=== PATIENT | female | born 1990 | race Caucasian/White ===

== ENCOUNTER 2017-11-12 03:37 | Emergency (ER) | payer OTHER, MEDICAID, SELFPAY ==
[2017-11-12 03:40] VITALS: BP 124/74; PULSE 79; RESP 16; TEMP 36.6
[2017-11-12 04:13] LABS: Bacteria Urine Many (>30); Culture Indicated Urine Specimen Cultured; RBC Urine 1-5/HPF (0-5/HPF); Squamous Epithelial Cell Urine 1-5 /HPF; WBC Urine 10-30/HPF (0-5/HPF)
[2017-11-12] MEDS: cephALEXin 250 MG PREPACK 1 BOTTLE MISC (04:16)
--- NOTE | 2017-11-12 04:20 | ED_ITS ---
HPI - Female Genitourinary General Chief complaint: Urogenital-Female Stated complaint: URINE FREQUENCY, BACK PAIN NAUSEA Time Seen by Provider: 11/12/17 03:40 Source: patient and family Mode of arrival: ambulatory Limitations: no limitations History of Present Illness HPI Narrative: Patient presents to the emergency department this evening with a chief complaint of dysuria, frequency and urgency for the past few days. She now has some low back pain and nausea but denies any fever or chills. She is able to eat and drink without difficulty. She denies . MD Complaint: dysuria and UTI Onset (ago): day(s) Location: suprapubic Female Urogenital Radiation: L Flank and R Flank Severity: mild Quality: Aching Duration: constant Relieving factors: none Exacerbating factors: none Urinary symptoms: Difficulty Urinating, Dysuria, Flank Pain, Foul Smelling Urine , Frequency and Urgency Patient : No Associated symptoms: abdominal pain and nausea/vomiting Related Data Previous Rx's Medication Instructions Recorded cephalexin [Keflex] 500 mg PO QID 10 Days #40 cap 11/12/17 Review of Systems Review of Systems All systems reviewed & are unremarkable except as noted in HPI and below Constitutional Denies chills, Denies fever(s), Denies lethargy and Denies weakness Eyes Denies change in vision, Denies eye discharge, Denies irritation and Denies loss of vision ENT Ears, Nose, Mouth, and Throat: Denies change in voice, Denies neck pain and Denies sore throat Cardiovascular Denies chest pain, Denies irregular heart rhythm, Denies lightheadedness, Denies palpitations, Denies dyspnea, Denies dyspnea on exertion and Denies orthopnea Respiratory Denies cough, Denies dyspnea, Denies dyspnea on exertion and Denies wheezing Gastrointestinal Gastrointestinal: Denies abdominal pain, Denies change in bowel habits, Denies diarrhea, Denies nausea and Denies vomiting Genitourinary Reports system reviewed and no additional complaints, except as docu, Reports flank pain, Reports urinary incontinence, Reports urinary hesitancy and Reports urinary urgency Musculoskeletal Reports back pain and Denies neck pain Integumentary/Breasts Denies pruritus, Denies erythema, Denies rash and Denies wounds Neurologic Denies confusion, Denies loss of vision and Denies weakness Psychiatric Denies anxiety, Denies confusion, Denies depression, Denies homicidal ideation and Denies suicidal ideation Endocrine Denies palpitations Hematologic/Lymphatic Denies easy bruising Allergic/Immunologic Denies wheezing Exam Initial Vital Signs Initial Vital Signs: Vital Signs Temperature 97.8 F 11/12/17 03:40 Pulse Rate 79 11/12/17 03:40 Respiratory Rate 16 11/12/17 03:40 Blood Pressure 124/74 H 11/12/17 03:40 Const General: cooperative and well developed Nutritional Appearance: well nourished Orientation: alert, awake, oriented x3 and not confused HENMT Head: normocephalic and atraumatic Ears: external ears normal and TM's normal bilaterally Nose: external nose normal and No nasal discharge Face and sinus: sinuses nontender, face symmetric, no sinus tenderness and No dry mucous membranes Mouth: oral mucosae normal and moist mucous membranes Teeth and gingiva: dentition normal Throat: tonsils normal and uvula midline Eyes General: appearance normal, both eyes and all related structures Eyelids: eyelids normal Conjunctivae: conjunctivae normal Sclera: sclerae normal Pupils: PERRL EOM: EOM intact bilaterally Resp Effort & Inspection: normal respiratory effort, able to speak in complete sentences, no respiratory distress and no use of accessory muscles Auscultation: clear to auscultation bilaterally, no rales, no rhonchi and no wheezes Cardio Rate: regular rate Rhythm: regular rhythm Heart Sounds: no click, no gallops, no murmurs and no rubs Pulses: normal peripheral pulses GI Palpation: tender (suprapubic tenderness) Back/Spine/Pelvis Other: minimal CVA tenderness Course Orders Ordered: ED Orders 11/12/17 03:40 Urine Culture Stat Urine Microscopic Stat Discontinued Medications Cefazolin Sodium (Keflex) 1 bottle MISC SEEINSTR ONE Stop: 11/12/17 03:58 Cephalexin HCl (Keflex) 1 bottle MISC SEEINSTR ONE Stop: 11/12/17 03:56 Ondansetron HCl (Zofran Odt Prepack) 1 bottle MISC SEEINSTR ONE Stop: 11/12/17 03:56 Vital Signs - 8 hr 11/12/17 03:40 Temperature 97.8 F Pulse Rate 79 Respiratory Rate 16 Blood Pressure 124/74 H MDM - Female Genitourinary Lab Data Lab Results 11/12/17 Range/Units 03:40 Urine RBC 1-5/hpf (0-5/HPF) Urine WBC 10-30/hpf H (0-5/HPF) Ur Squamous Epith Cells 1-5 /hpf Urine Bacteria Many (>30) H (None) Ur Culture Indicated? Specimen cultured Micro UA Comment Not Reportable Discharge Plan Departure Patient Disposition: Home, Self-Care Clinical Impression: UTI (urinary tract infection) Discharge Date/Time: 11/12/17 04:10 Instructions: DI for Urinary Tract Infection (UTI) Activity Restrictions/Additional Instructions: *You have been diagnosed with [ urinary tract infection ] *What to do: *Take medications as directed *Follow up with your primary care provider in 2-3 days *Return to ER if you should have any new, worsening or concerning symptoms Prescriptions: New cephalexin [Keflex] 500 mg capsule 500 mg PO QID 10 Days Qty: 40 RF: 0 Referrals: Bessie Tay PA-C [Primary Care Provider] -
== END 2017-11-12 04:10 | disposition home or self-care (01) ==
PROVIDERS: Emergency Provider Emergency Medicine; Family Provider Internal Medicine; PCP Internal Medicine
DX: N39.0 Urinary tract infection, site not specified (principal)
CPT/HCPCS: 81015; 81025; 87077; 87086; 99282; 99283

== ENCOUNTER 2022-10-10 10:54 | Emergency (ER) | payer OTHER, SELFPAY ==
[2022-10-10 10:57] VITALS: BP 114/74; PULSE 66; RESP 15; TEMP 36.1; O2SAT 96; BMI 28.1
--- NOTE | 2022-10-10 11:30 | ED_ITS ---
HPI - Extremity Problem <BELEM Lopez - Last Filed: 10/10/22 12:48> General Chief complaint: Extremity Problem,Nontraumatic Stated complaint: rt hand ring middle finger tingeling heating senst Time Seen by Provider: 10/10/22 11:17 Source: patient Mode of arrival: Ambulatory History of Present Illness HPI Narrative: This is a 32-year-old female presents to the emergency department complaining of right wrist and middle finger numbness which has been progressive since 2019. 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 She is right-hand dominant. She Related Data Previous Rx's Medication Instructions Recorded diclofenac sodium 1 % topical gel 2 g topical QID PRN pain #100 grams 10/10/22 (Voltaren Arthritis Pain) ibuprofen 600 mg tablet 600 mg PO Q8H PRN fever or pain 10/10/22 #30 tabs Allergies Allergy/AdvReac Type Severity Reaction Status Date / Time Penicillins Allergy Verified 10/10/22 10:57 Review of Systems <BELEM Lopez - Last Filed: 10/10/22 12:48> Review of Systems ROS Unobtainable: All systems reviewed & are unremarkable except as noted in HPI and below Patient History <BELEM Lopez - Last Filed: 10/10/22 12:48> Social History Smoking Status: Unknown if ever smoked Smoking Status: Unknown if ever smoked alcohol intake frequency: holidays/special occasions only Substance Use Type: does not use Exam <BELEM Lopez - Last Filed: 10/10/22 12:48> Narrative Exam Narrative: Reviewed vitals signs and nursing notes. MSK: moves all extremities, no weakness, normal tone, ambulatory without deficit, negative Tinel sign to right wrist, complains of pain on the medial aspect of her right wrist with phalen maneuver and denies numbness or tingling to her 1st 3 digits. She complains of pain with flexion and extension. No range of motion or sensation deficit. full range of motion, when wiggling the fingers the medial right wrist is uncomfortable Skin: brisk capillary refill, without rash or wound Neuro: clear speech and normal cognition, A&O x3, GCS 15, no focal motor or sensation deficits Initial Vital Signs Initial Vital Signs: Vital Signs Temperature 97.0 F L 10/10/22 10:57 Pulse Rate 66 10/10/22 10:57 Respiratory Rate 15 10/10/22 10:57 Blood Pressure 114/74 10/10/22 10:57 Pulse Oximetry 96 10/10/22 10:57 Oxygen Delivery Method Room Air 10/10/22 10:57 <Alen Mcdermott DO - Last Filed: 10/11/22 08:48> Initial Vital Signs Initial Vital Signs: Vital Signs Temperature 97.0 F L 10/10/22 10:57 Pulse Rate 66 10/10/22 10:57 Respiratory Rate 15 10/10/22 10:57 Blood Pressure 114/74 10/10/22 10:57 Pulse Oximetry 96 10/10/22 10:57 Oxygen Delivery Method Room Air 10/10/22 10:57 Procedures <BELEM Lopez - Last Filed: 10/10/22 12:48> Orthopedic Splinting/Casting Injury #1: Side: right Upper Extremity Injury Location: wrist Upper Extremity Immobilizer: wrist splint Post splinting neuro exam: intact Post splinting vascular exam: intact Placed by: Nursing Course <BELEM Lopez - Last Filed: 10/10/22 12:48> Vital Signs Vital signs: Vital Signs - 8 hr 10/10/22 10:57 Temperature 97.0 F L Pulse Rate 66 Respiratory Rate 15 Blood Pressure 114/74 Pulse Oximetry 96 Oxygen Delivery Method Room Air <Alen Mcdermott DO - Last Filed: 10/11/22 08:48> Vital Signs Vital signs: Vital Signs - 8 hr 10/10/22 10:57 Temperature 97.0 F L Pulse Rate 66 Respiratory Rate 15 Blood Pressure 114/74 Pulse Oximetry 96 Oxygen Delivery Method Room Air MDM - Extremity (Nontraumatic) <BELEM Lopez - Last Filed: 10/10/22 12:48> MDM Narrative Medical decision making narrative: Chief Complaint: right wrist pain Primary historian: patient Multiple etiologies for patient's complaint considered including, but not limited to: Carpal tunnel syndrome, tendinitis due to repetitive motion, arthralgia, deQuervain tendinopathy, wrist sprain, ganglion cyst, acute fracture I have independently reviewed the patient's vital signs and nursing notes as well as prior records if available. My interpretation of imaging: Patient is atraumatic, no imaging indicated Sensory and motor function testing of the radial, median, and ulnar nerves are grossly intact. Sensation intact and equal between the dorsum of the thumb and index web space, tip of the index finger, and tip of the little finger. Patient able to make a ?thumbs up ?sign dorsiflex the wrist, make an ?OK? sign with thumb and index finger, dinora-cross the index and third finger, and spread all 5 fingers apart. Course of care: This is most likely wrist sprain versus tendinitis due to overuse. 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 She is interested in following up with Orthopedics for further evaluation, does not appear to be carpal tunnel syndrome, nontender over bony structures. She is neurovascularly intact. She was splinted in a Velcro wrist splint encouraged to ice, elevate use ibuprofen and topical Voltaren gel as needed for her symptoms and to follow up with Orthopedics Social considerations that may affect disposition: none Questions are addressed and there is agreement with the plan and for follow-up. I consulted with the ED attending physician Dr. Mcdermott as needed for higher level of care considerations and they were available for discussion and recommendations regarding plan of care and diagnostic testing. Patient is appropriate for outpatient management. Discharge Plan Departure Patient Disposition: Home Clinical Impression: Right wrist tendinitis Instructions: DI for Tendinitis, How to Apply an Elastic Wrap on Wrist Activity Restrictions/Additional Instructions: *You have been diagnosed with tendinitis of your right wrist. This is likely from your work and overuse, please wear wrist splint most of the time and schedu le follow-up with prolonged orthopedics for evaluation to see if this is tendinitis versus carpal tunnel syndrome. You can ice, take ibuprofen, use Voltaren gel up to 4 times a day and this should help with the inflammation. Try to elevate and avoid overuse. *What to do: *Please continue to take your regular medications as directed. [x] New medication prescriptions sent to your pharmacy: [[facility] [place] ] [ ] New medication written as a paper prescription [ ] No new medications given *Please call and schedule follow up with your primary care provider in 2-3 days, at least for an update. Let them know you were seen in the Emergency Department for the above problem. We will electronically transmit a record of today's note if your PCP or specialist is in our system. *If you do not have a primary care provider please contact [phone] to establish care with one of the [facility] primary care providers. *Return to the Emergency Department for worsening symptoms, inability to keep liquids down, fever greater than 101F, chills, or other concerning symptom. Prescriptions: New diclofenac sodium [Voltaren Arthritis Pain] 1 % gel 2 g topical QID PRN (Reason: pain) Qty: 100 1RF Rx Instructions: apply to single elbow, wrist or hand; for hand includes palm/fingers/back of hand ibuprofen 600 mg tablet 600 mg PO Q8H PRN (Reason: fever or pain) Qty: 30 0RF Referrals: [facility] [Provider Group] Miscellaneous,Doctor, [Primary Care Provider] - Stand Alone Forms: Patient Portal/API, Work Release Note <Alen Mcdermott DO - Last Filed: 10/11/22 08:48> Cosign ED Attending Jeremiasature Attestation: I was immediately available in the department for consultation. Documentation has been reviewed. I agree with assessment and plan.
== END 2022-10-10 11:32 | disposition home or self-care (01) ==
PROVIDERS: Emergency Provider Nurse Practitioner Critical Care Medicine; Family Provider Internal Medicine
DX: M77.8 Other enthesopathies, not elsewhere classified (principal)
CPT/HCPCS: 99281

== ENCOUNTER 2022-11-08 09:16 | Emergency (ER) | payer OTHER, SELFPAY ==
--- NOTE | 2022-11-08 09:17 | ED_ITS ---
HPI - General Adult General Chief complaint: Upper Respiratory Symptoms Stated complaint: massive hard lump on RT throat getting bigger Time Seen by Provider: 11/08/22 09:17 History of Present Illness HPI narrative: 32-year-old female nonsmoker presents with a chief complaint of swelling on the right side of her throat over the past day or so. She states that she had been in her normal state of health and then this morning noticed swelling in the right anterior neck. She denies any trouble swallowing or breathing. She denies much in the way of pain. She has had no fever or chills. She denies runny nose, sore throat or cough. She denies chest pain or shortness of breath. Related Data Previous Rx's Medication Instructions Recorded diclofenac sodium 1 % topical gel 2 g topical QID PRN pain #100 grams 10/10/22 (Voltaren Arthritis Pain) ibuprofen 600 mg tablet 600 mg PO Q8H PRN fever or pain 10/10/22 #30 tabs Allergies Allergy/AdvReac Type Severity Reaction Status Date / Time Penicillins Allergy Verified 10/10/22 10:57 Review of Systems Review of Systems Narrative: GENERAL: Denies chills, fatigue, malaise, fever, sweats. HEENT: See HPI RESPIRATORY: Denies dyspnea, cough, wheezing, hemoptysis, sputum. CARDIOVASCULAR: Denies chest pain, palpitations, orthopnea, edema, GASTROINTESTINAL: Denies nausea, vomiting, abdominal pain, diarrhea, constipation, melena. : Denies dysuria, frequency, incontinence, hematuria, urinary retention. MUSCULOSKELETAL: denies weakness, joint pain, or bony pain SKIN: Denies rash, skin lesions, or other NEUROLOGIC: Denies weakness, headache, numbness, change in speech, confusion, seizures, incoordination. PSYCHIATRIC: No concerning psychosocial issues. 12 point review of systems is negative except for those stated above Patient History Social History Smoking Status: Unknown if ever smoked Smoking Status: Unknown if ever smoked alcohol intake frequency: holidays/special occasions only Substance Use Type: does not use Exam Narrative Exam Narrative: GEN: AOx3 and in mild distress EYES: Pupils are equal, round, and reactive to light and accommodation. Extraoccular muscles are intact bilaterally. There is no subconjunctival hemorrhage or exudate. ENT: swelling R lateral neck, under mandible. Non-tender, no erythema or fluctuance. No respiratory distress, no difficulty swallowing, airway patent, controlling secretions without difficulty CHEST: Lungs are clear to auscultation bilaterally and free of wheezes, rales, or rhonchi. Heart rate is regular rhythm, there are no murmurs, clicks, rubs, or gallops. There is no chest wall tenderness. ABD: Abdomen is soft and nontender. There is no guarding or rebound. Bowel sounds are normal in all 4 quadrants. There is no mass or organomegaly. EXT: Full painless ROM of all extremities with no loss of sensation or strength. SKIN: Warm, pink, and dry. No erythema or rash Initial Vital Signs Initial Vital Signs: Vital Signs Temperature 98.4 F 11/08/22 09:23 Pulse Rate 93 H 11/08/22 09:23 Respiratory Rate 16 11/08/22 09:23 Blood Pressure 118/62 11/08/22 09:23 Pulse Oximetry 100 11/08/22 09:23 Oxygen Delivery Method Room Air 11/08/22 09:23 Medical Decision Making Lab Data Labs: Lab Results 11/08/22 Range/Units 09:27 Group A Strep (PCR) Negative (Negative) MDM Narrative Medical decision making narrative: [32] year old patient presents with swelling of right lateral neck Multiple etiologies for patient's symptoms considered including, but not limited to: [Sialadenitis versus parotitis versus anterior cervical adenopathy versus strep versus other] Prior Charts reviewed in our EMR Primary Historian: patient Labs reviewed and interpreted by myself: Rapid strep demonstrates Imaging reviewed: Soft tissue of neck demonstrates Patient with relatively painless right-sided neck swelling, no difficulty s wallowing or breathing. No fever, warmth or redness, low suspicion for infection. Most consistent with sialadenitis. Imaging is reassuring and strep is negative. Patient encouraged to use sialagogues, contact [facility] for follow-up and return precautions discussed including increasing size, difficulty swallowing, breathing, controlling secretions, fever or other bothersome symptoms Findings and discharge diagnosis discussed with patient/family followed by verbalization of understanding Return precautions discussed with patient/family whom verbalize understanding of diagnosis and plan Discharge Plan Departure Patient Disposition: Home Clinical Impression: Sialadenitis Instructions: Parotitis Activity Restrictions/Additional Instructions: *You have been diagnosed with [neck swelling most consistent with swollen salivary gland. Your rapid strep was negative, x-ray is unremarkable and there is no sign of infection.] *What to do: *Please continue to take your regular medications as directed. [ ] New medication prescriptions sent to your pharmacy: [ ] [ ] New medication written as a paper prescription [ ] No new medications given *Please follow up with your primary care provider in 2-3 days, call for an appointment. Let them know you were seen in the Emergency Department and that we ask that you be seen in follow up. We will electronically transmit a record of today's note if your PCP is in our system *As we discussed sucking on hard candies such as jolly ranchers can help clear what is likely an obstructed salivary duct. * as we discussed I have given you the contact information for Dr. Urbina with [facility]. Please call the office later today, let them know you were seen in the emergency department and we would like you seen in follow-up. I will electronically transmitted a copy of today's note *If you do not have a primary care provider please contact the [facility] Resource line at [phone]. They will ask some questions about your medical history and help get you set up with a doctor in the community. *Return to Emergency Department if you should have any new, worsening or concerning symptoms, such as [fever greater than 101 F, shaking chills, worsening pain, persistent vomiting or other bothersome symptoms] Prescriptions: No Action diclofenac sodium [Voltaren Arthritis Pain] 1 % gel 2 g topical QID PRN (Reason: pain) Qty: 100 1RF Rx Instructions: apply to single elbow, wrist or hand; for hand includes palm/fingers/back of hand ibuprofen 600 mg tablet 600 mg PO Q8H PRN (Reason: fever or pain) Qty: 30 0RF Referrals: Manny Urbina MD [Physician] - Miscellaneous,MD Johann [Primary Care Provider] - Stand Alone Forms: Patient Portal/API
[2022-11-08 09:23] VITALS: BP 118/62; PULSE 93; RESP 16; TEMP 36.9; O2SAT 100; BMI 28.1
--- NOTE | 2022-11-08 09:40 | DI.RAD.S_ITS ---
PROCEDURE: XR SOFT TISSUE NECK INDICATIONS: swelling throat R>L TECHNIQUE: 2 views of the neck were acquired. COMPARISON: None. FINDINGS: Airway: The airway appears patent. Soft tissues: Prevertebral soft tissues are normal in thickness. The epiglottis and aryepiglottic folds appear normal. No soft tissue gas. Bones: No suspicious bony lesions. Mild degenerative spurring in lower cervical spine. Visualized cervical spine is normally aligned. IMPRESSION: Normal soft tissue neck. If clinical symptoms persist, consider neck CT with contrast for further evaluation. Dictated by: Pennie Nieves M.D. on 11/08/2022 at 10:25 Approved by: Pennie Nieves M.D. on 11/08/2022 at 10:26
[2022-11-08 09:43] LABS: Strep Grp A by PCR Rapid Negative (Negative)
== END 2022-11-08 10:35 | disposition home or self-care (01) ==
PROVIDERS: Emergency Provider Emergency Medicine; Family Provider Internal Medicine
DX: K11.20 Sialoadenitis, unspecified (principal)
CPT/HCPCS: 70360; 87070; 87651; 99283

== ENCOUNTER 2023-02-18 06:31 | Emergency (ER) | payer OTHER, SELFPAY ==
[2023-02-18 06:53] VITALS: BP 115/65; PULSE 86; RESP 18; TEMP 36.2; O2SAT 97; BMI 27.3
--- NOTE | 2023-02-18 07:24 | ED_ITS ---
HPI - Extremity Injury (Lower) General Chief Complaint: Extremity Injury, Lower Stated Complaint: left leg pain Time Seen by Provider: 02/18/23 07:16 Source: patient Mode of arrival: Ambulatory History of Present Illness HPI Narrative: Patient here for lower left side back pain/injury. Patient was at the gym working out yesterday was using cable pulls attached to her left ankle. She was pulling the weight towards the backside. She felt and heard a pop in the left lower back. Pain radiates posteriorly to the left knee. No saddle paresthesia numbness tingling or weakness to the legs or feet. No bowel or bladder incontinence. No prior history of back problems or injuries/therapy or MRI. Patient is able to stand and walk. Increased pain with getting out of the seat. Has not taken anything for pain. Denies does not want a test. Boot and sock removed for exam. Lower back exposed Related Data Previous Rx's Medication Instructions Recorded diclofenac sodium 1 % topical gel 2 g topical QID PRN pain #100 grams 10/10/22 (Voltaren Arthritis Pain) ibuprofen 600 mg tablet 600 mg PO Q8H PRN fever or pain 10/10/22 #30 tabs baclofen 20 mg tablet 20 mg PO TID PRN pain (scale score 02/18/23 4-6) #21 tabs ibuprofen 800 mg tablet 800 mg PO Q8H PRN pain #20 tabs 02/18/23 Allergies Allergy/AdvReac Type Severity Reaction Status Date / Time Penicillins Allergy Verified 10/10/22 10:57 Review of Systems Review of Systems Narrative: GENERAL: negative chills, fatigue, malaise, fever, sweats. HEENT: negative sinus pain, ear pain, sore throat RESPIRATORY: negative dyspnea, cough CARDIOVASCULAR: negative chest pain, palpitations GASTROINTESTINAL: negative nausea, vomiting, abdominal pain : negative dysuria, frequency, hematuria MUSCULOSKELETAL: Positive back/muscle or bony pain SKIN: negative rash, skin lesions NEUROLOGIC: negative weakness, numbness ROS Unobtainable: All systems reviewed & are unremarkable except as noted in HPI and below Patient History Social History Smoking Status: Unknown if ever smoked Smoking Status: Unknown if ever smoked alcohol intake frequency: holidays/special occasions only Substance Use Type: does not use Exam Narrative Exam Narrative: GENERAL: in no distress, not toxic not dyspneic HEAD: Normocephalic. EYES: Pupils equal round ENT: Mucous membranes moist. NECK: Trachea midline. EXTREMITIES: No gross deformities. BACK: No flank tenderness. There is no midline tenderness or step-off of the cervical thoracic or lumbar spine. There is tenderness and spasm to the left supragluteal left paralumbar muscles. Increased pain with side bending to the left. Able to side bend to the right. Limited flexion and extension at the waist forward and back due to pain. Increased pain with straight leg raise left side, in seated position., pain at 90?. NEURO: AOx4. Able to stand and walk, nonantalgic, not ataxic. No foot drop. Strong bilateral ankle flexion-extension as well as hip and knee flexion- extension. Strong bilateral patellar reflexes. Light touch intact to left foot and toes. Able to wiggle toes. Foot is warm soft and pain strong pedal pulse brisk cap refills SKIN: Warm and dry PSYCH: Not anxious, is cooperative Initial Vital Signs Initial Vital Signs: Vital Signs Temperature 97.2 F L 02/18/23 06:53 Pulse Rate 86 02/18/23 06:53 Respiratory Rate 18 02/18/23 06:53 Blood Pressure 115/65 02/18/23 06:53 Pulse Oximetry 97 02/18/23 06:53 Oxygen Delivery Method Room Air 02/18/23 06:53 Course Orders Ordered: ED Orders 02/18/23 07:23 XR lumbar spine 2-3V Stat Vital Signs Vital signs: Vital Signs - 8 hr 02/18/23 06:53 02/18/23 08:29 Temperature 97.2 F L Pulse Rate 86 61 Respiratory Rate 18 16 Blood Pressure 115/65 102/62 Pulse Oximetry 97 99 Oxygen Delivery Method Room Air Room Air MDM - Extremity Injury (Lower) Imaging Data X-ray lumbar spine: Radiologist's Impression: [address] [address] XRay Report Signed Patient: Maryam Fritz MR#: [id number] : 1990 Acct:[id number] Age/Sex: 32 / F Date of Service: 02/18/23 Loc: ED Accession Number: [id number] Procedure: XR lumbar spine 2-3V Ordering Provider: Dat Holt MD PROCEDURE: XR LUMBAR SPINE 2-3V INDICATIONS: Left-sided pain/injury TECHNIQUE: 3 views of the lumbar spine were acquired. COMPARISON: None. FINDINGS: Bones: 5 [id number] vertebrae are present. There is normal bony alignment. No vertebral body compression fractures. No suspicious bony lesions. Mild disc height loss at all levels. Soft tissues: Overlying bowel gas pattern is normal. No suspicious soft tissue calcifications. IMPRESSION: No acute, displaced fracture or traumatic subluxation. Dictated by: Luis E Becerra M.D. on 02/18/2023 at 8:12 Approved by: Luis E Becerra M.D. on 02/18/2023 at 8:13 [facility] Narrative Medical decision making narrative: Patient here for lower left side back pain/injury. Patient was at the gym working out yesterday was using cable pulls attached to her left ankle. She was pulling the weight towards the backside. She felt and heard a pop in the left lower back. Pain radiates posteriorly to the left knee. No saddle paresthesia numbness tingling or weakness to the legs or feet. No bowel or bladder incontinence. No prior history of back problems or injuries/therapy or MRI. Patient is able to stand and walk. Increased pain with getting out of the seat. Has not taken anything for pain. Denies does not want a test. Boot and sock removed for exam. Lower back exposed After history and exam x-ray lumbar spine [facility] CC: Left lower back pain Complicating co-morbidities: None Data collected from: Patient Medical records reviewed: No previous visit for this complaint Differential considered: Includes but not limited to lumbar strain sciatica bulging disc herniated disc lumbar radiculopathy Exam documented above, pertinent findings include: Limited range of motion at the waist/lower back Imaging studies independently reviewed: X-ray lumbar spine no acute finding Treatments: Patient drove here Re-evaluations: Reviewed results with patient. X-ray imaging is reassuring. Work note provided. Informed her it will take at least a week to improve. Would recommend not working out in the gym at this time but to continue movement and stretching of the lower back. Return precautions reviewed with her. Nontoxic at discharge. She desires discharge home. She does not want to wait for final results of the lumbar x-ray Discussion: Appropriate for discharge home. Exam and imaging are reassuring. Work note provided. Return precautions reviewed with patient. Patient states has a family doctor to follow up with. Appropriate for prescription for ibuprofen and baclofen. Diagnosis: Lumbar strain Discharge Plan Departure Patient Disposition: Home Clinical Impression: Lumbar strain Qualifiers: Encounter type: initial encounter Qualified Code(s): S39.012A - Strain of muscle, fascia and tendon of lower back, initial encounter Instructions: DI for Back Pain With Sciatica, DI for Back Strain or Sprain Activity Restrictions/Additional Instructions: See your family doctor in a week for re-evaluation. Please do continue stretching your lower back and sciatica exercises. However no heavy lifting bending twisting at the waist as this may exacerbate your lower back injury. You may need to follow up family doctor for MRI of the lower back. Prescription medication has been sent to your pharmacy to [facility] today. Work note has been provided for you as well. Prescriptions: New ibuprofen 800 mg tablet 800 mg PO Q8H PRN (Reason: pain) Qty: 20 0RF baclofen 20 mg tablet 20 mg PO TID PRN (Reason: pain (scale score 4-6)) Qty: 21 0RF No Action diclofenac sodium [Voltaren Arthritis Pain] 1 % gel 2 g topical QID PRN (Reason: pain) Qty: 100 1RF Rx Instructions: apply to single elbow, wrist or hand; for hand includes palm/fingers/back of hand ibuprofen 600 mg tablet 600 mg PO Q8H PRN (Reason: fever or pain) Qty: 30 0RF Referrals: Miscellaneous,Doctor, MD [Primary Care Provider] - Stand Alone Forms: Patient Portal/API, Work Release Note
[2023-02-18 08:29] VITALS: BP 102/62; PULSE 61; RESP 16; O2SAT 99
== END 2023-02-18 08:29 | disposition home or self-care (01) ==
PROVIDERS: Emergency Provider Emergency Medicine; Family Provider Internal Medicine
DX: S39.012A Strain of muscle, fascia and tendon of lower back, initial encounter (principal); X58.XXXA Exposure to other specified factors, initial encounter
CPT/HCPCS: 72100; 99283

== ENCOUNTER 2024-01-22 10:08 | Emergency (ER) | payer OTHER, SELFPAY ==
[2024-01-22 10:15] VITALS: BP 95/53; PULSE 60; RESP 16; TEMP 36.6; O2SAT 99; BMI 22.2
--- NOTE | 2024-01-22 11:01 | ED_ITS ---
HPI - Back Pain/Injury <Yesi Washington PA-C - Last Filed: 01/22/24 12:28> General Chief Complaint: Back Pain/Injury Stated Complaint: Hurt herself at the Gym back pain Time Seen by Provider: 01/22/24 10:17 Source: patient History of Present Illness HPI Narrative: Patient is a 33-year-old female presents to the emergency department complaining of back pain, she injured herself at the gym, yesterday the patient was doing lifts, she was lifting a 230lbs, she did not have her belt, she felt a sudden pain in her lower back, some pulling sensation the pain continued. However, the patient continued with her workout, she then did some hip thrust, and then further exercises in the back. The pain continued throughout the day. She woke up this morning with severe discomfort and pain in the lower lumbar and some left sciatic nerve pain. Patient took baclofen, and then some pain medication she does not remember the name of it prior to being seen here in the emergency room department. Her drove her in to the emergency room department for discomfort and pain. Patient states that when she sitting the pain as a 3 when she gets up and moves the pain is a 7-8. She has no signs and symptoms of cauda equina. She has no other physical complaints. Related Data Previous Rx's Medication Instructions Recorded diclofenac sodium 1 % topical gel 2 g topical QID PRN pain #100 grams 10/10/22 (Voltaren Arthritis Pain) ibuprofen 600 mg tablet 600 mg PO Q8H PRN fever or pain 10/10/22 #30 tabs baclofen 20 mg tablet 20 mg PO TID PRN pain (scale score 02/18/23 4-6) #21 tabs ibuprofen 800 mg tablet 800 mg PO Q8H PRN pain #20 tabs 02/18/23 cyclobenzaprine 10 mg tablet 10 mg PO TID #12 tabs 01/22/24 ketorolac 10 mg tablet 10 mg PO Q8H #12 tabs 01/22/24 prednisone 10 mg tablet 10 mg PO DAILY #12 tabs 01/22/24 Allergies Allergy/AdvReac Type Severity Reaction Status Date / Time Penicillins Allergy Verified 10/10/22 10:57 Review of Systems <Yesi Washington PA-C - Last Filed: 01/22/24 12:28> Review of Systems Narrative: Negative except as above Musculoskeletal Comments: Lower lumbar pain with left sciatic nerve pain into the calf Patient History <Yesi Washington PA-C - Last Filed: 01/22/24 12:28> Social History Smoking Status: Unknown if ever smoked Smoking Status: Unknown if ever smoked alcohol intake frequency: holidays/special occasions only Substance Use Type: does not use Exam <Yesi Washington PA-C - Last Filed: 01/22/24 12:28> Initial Vital Signs Initial Vital Signs: Vital Signs Temperature 97.8 F 01/22/24 10:15 Pulse Rate 60 01/22/24 10:15 Respiratory Rate 16 01/22/24 10:15 Blood Pressure 95/53 L 01/22/24 10:15 Pulse Oximetry 99 01/22/24 10:15 Oxygen Delivery Method Room Air 01/22/24 10:15 Reviewed Const General: cooperative, healthy appearing, comfortable, well developed, well groomed, No acute distress and No in distress Eyes Pupils: PERRL EOM: EOM intact bilaterally Back/Spine/Pelvis Other: Patient has lower lumbar discomfort and pain. Pain that radiates down into the left hip down into the left hamstring. Exacerbated with straightening of the leg. Exacerbated with sitting. Exacerbated with standing. Patient can plantar and dorsiflex. Pulses are present. Cap refill is preserved. Skin Other: Warm pink and dry. Neuro General: patient alert, patient awake, patient oriented x3 and oriented Cognition: normal cognition Speech: speech normal Gait: other Other: Initially the patient came in in a wheelchair. She leaves the facility walking with her . She states she feels more comfortable. Extrem Other: Cap refill is preserved. Pulses are present. Patient initially came in in a wheelchair. However she ambulates under own power as she leaves the facility. Psych Appearance: grossly normal and well kempt Mental Status: mental status grossly normal Speech and Movement: speech and movement normal Mood: congruent mood Affect: normal affect Attitude: cooperative Thought Process: normal Thought Content: normal Judgment: judgment good <Carlotta Lozoya DO - Last Filed: 01/22/24 19:42> Initial Vital Signs Initial Vital Signs: Vital Signs Temperature 97.8 F 01/22/24 10:15 Pulse Rate 60 01/22/24 10:15 Respiratory Rate 16 01/22/24 10:15 Blood Pressure 95/53 L 01/22/24 10:15 Pulse Oximetry 99 01/22/24 10:15 Oxygen Delivery Method Room Air 01/22/24 10:15 Course <Yesi Washington PA-C - Last Filed: 01/22/24 12:28> Orders Ordered: Discontinued Medications Cyclobenzaprine HCl (Cyclobenzaprine 10 Mg Tablet) 10 mg PO NOW ONE Stop: 01/22/24 11:32 Last Admin: 01/22/24 11:56 Dose: 10 mg Documented By: DONNA Ketorolac Tromethamine (Ketorolac 30 Mg/Ml Vial) 30 mg IM NOW ONE Stop: 01/22/24 11:32 Last Admin: 01/22/24 11:55 Dose: 30 mg Documented By: DONNA Prednisone (Prednisone 20 Mg Tablet) 40 mg PO NOW ONE Stop: 01/22/24 11:32 Last Admin: 01/22/24 11:56 Dose: 40 mg Documented By: DONNA Reevaluation(s) Reevaluation #1: Patient leaves the facility under her own power ambulating. She states she feels better. Still has some discomfort but definitely more comfortable than when she came in. Vital Signs Vital signs: Vital Signs - 8 hr 01/22/24 12:16 Pulse Rate 62 Blood Pressure 88/53 L Pulse Oximetry 97 Oxygen Delivery Method Room Air Reviewed <Carlotta Lozoya DO - Last Filed: 01/22/24 19:42> Orders Ordered: Discontinued Medications Cyclobenzaprine HCl (Cyclobenzaprine 10 Mg Tablet) 10 mg PO NOW ONE Stop: 01/22/24 11:32 Last Admin: 01/22/24 11:56 Dose: 10 mg Documented By: DONNA Ketorolac Tromethamine (Ketorolac 30 Mg/Ml Vial) 30 mg IM NOW ONE Stop: 01/22/24 11:32 Last Admin: 01/22/24 11:55 Dose: 30 mg Documented By: DONNA Prednisone (Prednisone 20 Mg Tablet) 40 mg PO NOW ONE Stop: 01/22/24 11:32 Last Admin: 01/22/24 11:56 Dose: 40 mg Documented By: DONNA Vital Signs Vital signs: Vital Signs - 8 hr 01/22/24 12:16 Pulse Rate 62 Blood Pressure 88/53 L Pulse Oximetry 97 Oxygen Delivery Method Room Air MDM - Back Pain/Injury <Yesi Washington PA-C - Last Filed: 01/22/24 12:28> [facility] Narrative Medical decision making narrative: Patient is a 33-year-old female presents to the emergency department complaining of back pain after she injured herself at the gym. The patient was doing lifts. Was lifting quite heavy weight, was not using her lifting belt. Had sudden discomfort and pain in her lower lumbar area and some radiculopathy into the left hamstring area. Patient took baclofen and some pain medication this morning when she woke up with severe back pain. Presented to the emergency room department with continued back pain. No signs or symptoms of cauda equina. Signs and symptoms of lower lumbar strain with left sciatic nerve pain. Patient given 30 mg of IM Toradol Flexeril 10 mg p.o. 40 mg of p.o. prednisone Patient now ambulating under her own power and states she feels better Patient discharged in Improved condition Differential diagnosis; lumbar strain, left sciatic nerve pain, musculoskeletal, myofascial pain. Discharge Plan Departure Patient Disposition: Home Clinical Impression: Left sciatic nerve pain Acute lumbar myofascial strain Qualifiers: Encounter type: initial encounter Qualified Code(s): S39.012A - Strain of muscle, fascia and tendon of lower back, initial encounter Strain of lumbar region Qualifiers: Encounter type: initial encounter Qualified Code(s): S39.012A - Strain of muscle, fascia and tendon of lower back, initial encounter Instructions: DI for Muscle Strain, DI for Back Pain With Sciatica Activity Restrictions/Additional Instructions: Ice for the 1st 72 hours and ice and heat. Slow range of motion, kick active, topical preparations. Follow up with her primary care doctor. Return to the emergency department as needed. Prescriptions: New ketorolac 10 mg tablet 10 mg PO Q8H Qty: 12 0RF Rx Instructions: maximum total duration of 5 days from all oral, intranasal, or parenteral formulations cyclobenzaprine 10 mg tablet 10 mg PO TID Qty: 12 0RF prednisone 10 mg tablet 10 mg PO DAILY Qty: 12 0RF Rx Instructions: 30 mg for 2 days, 20 mg for 2 days, 10 mg for 2 days. No Action diclofenac sodium [Voltaren Arthritis Pain] 1 % gel 2 g topical QID PRN (Reason: pain) Qty: 100 1RF Rx Instructions: apply to single elbow, wrist or hand; for hand includes palm/fingers/back of hand ibuprofen 600 mg tablet 600 mg PO Q8H PRN (Reason: fever or pain) Qty: 30 0RF ibuprofen 800 mg tablet 800 mg PO Q8H PRN (Reason: pain) Qty: 20 0RF baclofen 20 mg tablet 20 mg PO TID PRN (Reason: pain (scale score 4-6)) Qty: 21 0RF Referrals: Miscellaneous,Doctor, MD [Primary Care Provider] - Stand Alone Forms: Patient Portal/API, Work Release Note ED Sign-out <Carlotta Lozoya DO - Last Filed: 01/22/24 19:42> Cosign ED Attending Letha Attestation: I was immediately available in the department for consultation.
[2024-01-22] MEDS: KETOROLAC 30 MG/ML VIAL IM (11:55)
[2024-01-22] MEDS: predniSONE 20 MG TABLET 40 MG PO (11:56)
[2024-01-22] MEDS: CYCLOBENZAPRINE 10 MG TABLET PO (11:56)
[2024-01-22 12:16] VITALS: BP 88/53; PULSE 62; O2SAT 97
== END 2024-01-22 12:16 | disposition home or self-care (01) ==
PROVIDERS: Emergency Provider Physician Assistant; Family Provider Internal Medicine
DX: S39.012A Strain of muscle, fascia and tendon of lower back, initial encounter (principal); M54.32 Sciatica, left side; X50.0XXA Overexertion from strenuous movement or load, initial encounter
CPT/HCPCS: 96372; 99283; J1885